=== PATIENT | male | born 1960 | race Caucasian/White ===

== ENCOUNTER → 2019-12-03 11:39 | Outpatient (BNVA) | payer OTHER, SELFPAY | PROVIDERS: Family Provider Family Medicine; Referring Provider Internal Medicine; Visit Provider Urology | DX: R97.20 Elevated prostate specific antigen [PSA] (principal) | CPT/HCPCS: 81001; 84153 ==

== ENCOUNTER 2020-08-15 17:14 | Inpatient (IN) | payer OTHER, MEDICARE, SELFPAY ==
[2020-08-15] VITALS (25 sets, daily range): BP systolic 91–166; BP diastolic 59–102; PULSE 49–84; RESP 12–19; TEMP 36.4; O2SAT 99–100; BMI 25.0
--- NOTE | 2020-08-15 17:20 | ED_ITS ---
Documented by User: Toby Betancourt DO 08/16/20 17:38 HPI - Overdose General: Chief Complaint: Overdose Stated Complaint: OVERDOSE, ALOC Time Seen by Provider: 08/15/20 17:20 History of Present Illness: HPI Narrative: 60-year-old male who presents to the emergency room via EMS after having a self-reported overdose of several bottles of gabapentin. 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 Family had called EMS were not entirely sure when he actually took the gabapentin. However pharmacy clerk found that the patient was prescribed Lyrica. Additionally he was also prescribed trazodone. We have no information if he took other medications besides the reported gabapentin. On arrival he is intubated with an eye gel being ventilated. He had been given paralytics in the field the eye gel was removed and he was immediately intubated with an ET 8 oh ET tube on the first attempt with glide scope. No complications. MD complaint: intentional overdose Onset (ago): unknown Review of Systems General: Reports: ROS unobtainable due to medical condition PFS ED PFSH: Medical History Chronic hepatitis Elevated PSA Surgical History Surgical history unknown Family History Grandmother Suicide Other Alcoholism Social History Smoking and tobacco status: former smoker Alcohol intake: former Adopted: Yes Caregiver/support person: No Lives independently: No Household members: spouse Marital status: service: Yes status: Retired Current occupational status: retired History of recent travel: No Current gender identity: Male Physical Exam HENMT: COMMON NORMALS: normocephalic and atraumatic HEAD & SCALP: normocephalic and atraumatic Neck/C-Spine: COMMON NORMALS: full ROM, no lymphadenopathy, supple and no JVD Resp: COMMON NORMALS: normal respiratory effort, No retractions, No use of accessory muscles and clear to auscultation bilaterally AUSCULTATION: clear to auscultation bilaterally Cardio: COMMON NORMALS: no JVD, regular rate, regular rhythm and No murmurs p resent (Cardio) RATE: regular rate RHYTHM: regular rhythm GI: COMMON NORMALS: Soft to palpation and No hepatosplenomegaly present AUSCULTATION: Yes normoactive bowel sounds PALPATION: Yes Soft to palpation, No Tenderness to palpation present (GI), No Guarding due to palpation present (GI) and Yes No hepatosplenomegaly present Extremity: COMMON NORMALS: normal to inspection, capillary refill normal, no clubbing, cyanosis or edema, no calf tenderness and no pedal edema Skin: COMMON NORMALS: no rashes or lesions noted GENERAL SKIN EXAM: no rashes or lesions noted Procedures Intubation Time out performed: No Laryngoscope: fiber optic video scope Assist Device Used: fiber optic device ET Tube Size: 8 Tube Secured Depth (cm): 22 Tube Secured Location: teeth Tube Placement Confirmation: visualized tube passing through cords, equal breath sounds bilaterally, no breath sounds over epigastrium and confirmation by capnometry Patient Tolerated Procedure: well Intubation Complications: none Additional Comments: Patient had been sedated with rocuronium prior to arrival here the eye gel was removed when he arrived and was replaced with an ET tube without complications. I did have some difficulty placing a nasogastric tube assisted by using laryngoscope to visualize the cuff of the ET tube was visualized it was deflated and advanced. Confirmed at the level of the clavicles by chest x-ray Course Vital Signs: Vital signs: Vital Signs Temperature 97.6 F 08/15/20 17:16 Pulse Rate 60 08/16/20 05:59 Respiratory Rate 18 08/16/20 16:00 Blood Pressure 104/59 08/15/20 21:47 Pulse Oximetry 100 08/15/20 21:47 MDM - Overdose MDM Narrative: Medical decision making narrative: Care turned over to Dr. Rowe at change of shift see his note for final diagnosis and disposition Lab Data: Labs: Lab Results 08/15/20 08/15/20 08/15/20 Range/Units 17:18 17:20 17:20 WBC (4.0-10.0) 10^3/ uL RBC (4.1-5.3) 10^6/u L Hgb (11.7-16.6) g/dL Hct (42.0-52.0) % MCV (80-94) fL MCH (28.0-34.0) pg MCHC (30.0-36.0) g/dL RDW (12.1-15.1) % Plt Count (130-400) 10^3/c mm MPV (7.4-10.4) fL Neut % (Auto) % Lymph % (Auto) % Vil[place] % (Auto) % Eos % (Auto) % Baso % (Auto) % Neut # (Auto) (1.8-7.7) 10^3/u L Lymph # (Auto) (0.8-4.8) 10^3/u L Vil[place] # (Auto) (0.2-0.9) 10^3/u L Eos # (Auto) (0.0-0.8) 10^3/u L Baso # (Auto) (0.0-0.1) 10^3/u L Nucleated RBC % (a uto) % Nucleated RBCs # /100WBC Specimen Type Arterial Sample Site Radial, right ABG pH 7.37 (7.35-7.45) ABG pCO2 49.5 H (35-45) mmHg ABG pO2 331.0 H (80.0-100.0) mmH g ABG HCO3 28.6 H (22-26) mmol/L ABG O2 Saturation > 100.0 ABG Base Excess 2.3 H (-2.0-2.0) mmol/ L Diogo Test Pos A-a O2 Gradient 41.4 H (5-10) mmHg Hematocrit 44.1 (42-52) % Hgb O2 Saturation 97.6 (95-100) % Carboxyhemoglobin 1.7 (0.4-20.1) %THgb Methemoglobin 1.0 (0.4-1.5) % Total Hemoglobin 14.4 (14-18) g/dL Sodium 145.0 H 144 (131-143) mmol/L Potassium 3.9 3.7 (3.5-5.0) mmol/L Glucose 109.0 119 H (70-115) mg/dL Ionized Calcium 1.2 (1.1-1.4) mmol/L O2 Delivery Device Vent Mechanical Rate 14.0 FiO2 100.0 % Tidal Volume 0.50 PEEP 8.0 cmH20 [employer] ID Gd Chloride 107 (98-107) mmol/L Carbon Dioxide 29 (22-29) mmol/L Anion Gap 11.7 (5-19) BUN 8 (6-20) mg/dL Creatinine 0.6 L (0.7-1.2) mg/dL GFR Calculation 137.9 H (90-130) mL/min Calculated Osmolal ity 297 H (285-295) mOsm/k g Lactic Acid 0.8 (0.5-2.2) mmol/L Calcium 9.1 (8.5-10.5) mg/dL Magnesium 2.2 (1.7-2.3) mg/dL Total Bilirubin 0.3 (0.15-1.2) mg/dL AST 13 (0-40) U/L ALT 12 (0-41) U/L Alkaline Phosphata se 70 (40-130) IU/L Creatine Kinase 85 (39-308) U/L Total Protein 7.1 (6.6-8.7) g/dL Albumin 4.1 (3.5-5.2) g/dL Globulin 3.0 (1.3-4.6) g/dL Lipase 17 (13-60) U/L Urine Color (Yellow) Urine Appearance (CLEAR) Urine pH (5-7) Ur Specific Gravit y (1.005-1.030) Urine Protein (Negative) Urine Glucose (UA) (Normal) Urine Ketones (Negative) Urine Blood (Negative) Urine Nitrate (Negative) Urine Bilirubin (Negative) Urine Urobilinogen (Negative) mg/dL Ur Leukocyte Sylvia ase (Negative) Urine RBC (0-2) /hpf Urine WBC (0-5) /hpf Ur Squamous Epith Cells (0-5) /hpf Amorphous Sediment Urine Bacteria (NONE) /hpf Salicylates < 0.3 L (3-10) mg/dL Urine Opiates Scre en (Negative) ng/mL Acetaminophen < 5.0 L (10-30) ug/mL Ur Barbiturates Sc reen (Negative) ng/mL Phenytoin (10-20) ug/mL Ur Phencyclidine S crn (Negative) ng/mL Ur Amphetamines Sc reen (Negative) ng/mL U Benzodiazepines Scrn (Negative) ng/mL [place] (0.6-1.2) mmol/L Urine Cocaine Scre en (Negative) ng/mL U Marijuana (THC) Screen (Negative) ng/mL Ethyl Alcohol < 10 (0-10) mg/dL Serum Ketones Negative (Negative) 08/15/20 08/15/20 08/15/20 Range/Units 17:20 17:26 17:26 WBC 14.4 H (4.0-10.0) 10^3/ uL RBC 5.11 (4.1-5.3) 10^6/u L Hgb 14.3 (11.7-16.6) g/dL Hct 44.5 (42.0-52.0) % MCV 87.1 (80-94) fL MCH 28.0 (28.0-34.0) pg MCHC 32.1 (30.0-36.0) g/dL RDW 13.1 (12.1-15.1) % Plt Count 227 (130-400) 10^3/c mm MPV 9.5 (7.4-10.4) fL Neut % (Auto) 87.2 % Lymph % (Auto) 7.8 % Vil[place] % (Auto) 3.3 % Eos % (Auto) 0.6 % Baso % (Auto) 0.5 % Neut # (Auto) 12.58 H (1.8-7.7) 10^3/u L Lymph # (Auto) 1.1 (0.8-4.8) 10^3/u L Vil[place] # (Auto) 0.5 (0.2-0.9) 10^3/u L Eos # (Auto) 0.1 (0.0-0.8) 10^3/u L Baso # (Auto) 0.1 (0.0-0.1) 10^3/u L Nucleated RBC % (a uto) 0 % Nucleated RBCs # 0.0 /100WBC Specimen Type Sample Site ABG pH (7.35-7.45) ABG pCO2 (35-45) mmHg ABG pO2 (80.0-100.0) mmH g ABG HCO3 (22-26) mmol/L ABG O2 Saturation ABG Base Excess (-2.0-2.0) mmol/ L Diogo Test A-a O2 Gradient (5-10) mmHg Hematocrit (42-52) % Hgb O2 Saturation (95-100) % Carboxyhemoglobin (0.4-20.1) %THgb Methemoglobin (0.4-1.5) % Total Hemoglobin (14-18) g/dL Sodium (131-143) mmol/L Potassium (3.5-5.0) mmol/L Glucose (70-115) mg/dL Ionized Calcium (1.1-1.4) mmol/L O2 Delivery Device Mechanical Rate FiO2 % Tidal Volume PEEP cmH20 [employer] ID Chloride (98-107) mmol/L Carbon Dioxide (22-29) mmol/L Anion Gap (5-19) BUN (6-20) mg/dL Creatinine (0.7-1.2) mg/dL GFR Calculation (90-130) mL/min Calculated Osmolal ity (285-295) mOsm/k g Lactic Acid (0.5-2.2) mmol/L Calcium (8.5-10.5) mg/dL Magnesium (1.7-2.3) mg/dL Total Bilirubin (0.15-1.2) mg/dL AST (0-40) U/L ALT (0-41) U/L Alkaline Phosphata se (40-130) IU/L Creatine Kinase (39-308) U/L Total Protein (6.6-8.7) g/dL Albumin (3.5-5.2) g/dL Globulin (1.3-4.6) g/dL Lipase (13-60) U/L Urine Color Yellow (Yellow) Urine Appearance Clear (CLEAR) Urine pH 6.0 (5-7) Ur Specific Gravit y 1.020 (1.005-1.030) Urine Protein Neg (Negative) Urine Glucose (UA) Norm (Normal) Urine Ketones Negative (Negative) Urine Blood Neg (Negative) Urine Nitrate Negative (Negative) Urine Bilirubin Neg (Negative) Urine Urobilinogen 1 H (Negative) mg/dL Ur Leukocyte Sylvia ase Negative (Negative) Urine RBC None (0-2) /hpf Urine WBC 0-4 H (0-5) /hpf Ur Squamous Epith Cells 5-10 H (0-5) /hpf Amorphous Sediment Not Reportable Urine Bacteria Trace (NONE) /hpf Salicylates (3-10) mg/dL Urine Opiates Scre en Negative (Negative) ng/mL Acetaminophen (10-30) ug/mL Ur Barbiturates Sc reen Negative (Negative) ng/mL Phenytoin (10-20) ug/mL Ur Phencyclidine S crn Negative (Negative) ng/mL Ur Amphetamines Sc reen Negative (Negative) ng/mL U Benzodiazepines Scrn Negative (Negative) ng/mL [place] (0.6-1.2) mmol/L Urine Cocaine Scre en Negative (Negative) ng/mL U Marijuana (THC) Screen Positive H (Negative) ng/mL Ethyl Alcohol (0-10) mg/dL Serum Ketones (Negative) 08/15/20 Range/Units 18:30 WBC (4.0-10.0) 10^3/ uL RBC (4.1-5.3) 10^6/u L Hgb (11.7-16.6) g/dL Hct (42.0-52.0) % MCV (80-94) fL MCH (28.0-34.0) pg MCHC (30.0-36.0) g/dL RDW (12.1-15.1) % Plt Count (130-400) 10^3/c mm MPV (7.4-10.4) fL Neut % (Auto) % Lymph % (Auto) % [place] % (Auto) % Eos % (Auto) % Baso % (Auto) % Neut # (Auto) (1.8-7.7) 10^3/u L Lymph # (Auto) (0.8-4.8) 10^3/u L [place] # (Auto) (0.2-0.9) 10^3/u L Eos # (Auto) (0.0-0.8) 10^3/u L Baso # (Auto) (0.0-0.1) 10^3/u L Nucleated RBC % (a uto) % Nucleated RBCs # /100WBC Specimen Type Sample Site ABG pH (7.35-7.45) ABG pCO2 (35-45) mmHg ABG pO2 (80.0-100.0) mmH g ABG HCO3 (22-26) mmol/L ABG O2 Saturation ABG Base Excess (-2.0-2.0) mmol/ L Diogo Test A-a O2 Gradient (5-10) mmHg Hematocrit (42-52) % Hgb O2 Saturation (95-100) % Carboxyhemoglobin (0.4-20.1) %THgb Methemoglobin (0.4-1.5) % Total Hemoglobin (14-18) g/dL Sodium (131-143) mmol/L Potassium (3.5-5.0) mmol/L Glucose (70-115) mg/dL Ionized Calcium (1.1-1.4) mmol/L O2 Delivery Device Mechanical Rate FiO2 % Tidal Volume PEEP cmH20 [employer] ID Chloride (98-107) mmol/L Carbon Dioxide (22-29) mmol/L Anion Gap (5-19) BUN (6-20) mg/dL Creatinine (0.7-1.2) mg/dL GFR Calculation (90-130) mL/min Calculated Osmolal ity (285-295) mOsm/k g Lactic Acid (0.5-2.2) mmol/L Calcium (8.5-10.5) mg/dL Magnesium (1.7-2.3) mg/dL Total Bilirubin (0.15-1.2) mg/dL AST (0-40) U/L ALT (0-41) U/L Alkaline Phosphata se (40-130) IU/L Creatine Kinase (39-308) U/L Total Protein (6.6-8.7) g/dL Albumin (3.5-5.2) g/dL Globulin (1.3-4.6) g/dL Lipase (13-60) U/L Urine Color (Yellow) Urine Appearance (CLEAR) Urine pH (5-7) Ur Specific Gravit y (1.005-1.030) Urine Protein (Negative) Urine Glucose (UA) (Normal) Urine Ketones (Negative) Urine Blood (Negative) Urine Nitrate (Negative) Urine Bilirubin (Negative) Urine Urobilinogen (Negative) mg/dL Ur Leukocyte Sylvia ase (Negative) Urine RBC (0-2) /hpf Urine WBC (0-5) /hpf Ur Squamous Epith Cells (0-5) /hpf Amorphous Sediment Urine Bacteria (NONE) /hpf Salicylates (3-10) mg/dL Urine Opiates Scre en (Negative) ng/mL Acetaminophen (10-30) ug/mL Ur Barbiturates Sc reen (Negative) ng/mL Phenytoin 0.8 L (10-20) ug/mL Ur Phencyclidine S crn (Negative) ng/mL Ur Amphetamines Sc reen (Negative) ng/mL U Benzodiazepines Scrn (Negative) ng/mL [place] 0.1 L (0.6-1.2) mmol/L Urine Cocaine Scre en (Negative) ng/mL U Marijuana (THC) Screen (Negative) ng/mL Ethyl Alcohol (0-10) mg/dL Serum Ketones (Negative) Critical Care Time Critical Care Time: Critical Care Time: Yes Total Critical Care Time: 30 Attestation: This case had a high probability of a clinically significant, sudden, or life threatening deterioration of this patient's condition which required my full and direct attention, intervention and personal management. Discharge Plan Discharge Patient Disposition: Admitted As Inpatient Admit Provider: Molly Khalil Clinical Impression: Drug overdose Condition: Stable Coding Level of Care Code ED Stakes Player for Chg Fwd Exam Detailed Documented by User: Balbina Rowe MD 08/15/20 19:20 HPI - Overdose General: Chief Complaint: Overdose Stated Complaint: OVERDOSE, ALOC Time Seen by Provider: 08/15/20 17:20 [facility] ED PFSH: Medical History Chronic hepatitis Elevated PSA Surgical History Surgical history unknown Family History Grandmother Suicide Other Alcoholism Social History Smoking and tobacco status: former smoker Alcohol intake: former Adopted: Yes Caregiver/support person: No Lives independently: No Household members: spouse Marital status: service: Yes status: Retired Current occupational status: retired History of recent travel: No Current gender identity: Male Course Vital Signs: Vital signs: Vital Signs Temperature 97.6 F 08/15/20 17:16 Pulse Rate 60 08/16/20 05:59 Respiratory Rate 18 08/16/20 16:00 Blood Pressure 104/59 08/15/20 21:47 Pulse Oximetry 100 08/15/20 21:47 MDM - Overdose MDM Narrative: Medical decision making narrative: Took patient over from Dr. Gonzalez. Patient's been stable here and abated. Patient's lab work vital signs of been normal. I spoke to the hospitalist and will admit to the ICU. Lab Data: Labs: Lab Results 08/15/20 08/15/20 08/15/20 Range/Units 17:18 17:20 17:20 WBC (4.0-10.0) 10^3/ uL RBC (4.1-5.3) 10^6/u L Hgb (11.7-16.6) g/dL Hct (42.0-52.0) % MCV (80-94) fL MCH (28.0-34.0) pg MCHC (30.0-36.0) g/dL RDW (12.1-15.1) % Plt Count (130-400) 10^3/c mm MPV (7.4-10.4) fL Neut % (Auto) % Lymph % (Auto) % [place] % (Auto) % Eos % (Auto) % Baso % (Auto) % Neut # (Auto) (1.8-7.7) 10^3/u L Lymph # (Auto) (0.8-4.8) 10^3/u L [place] # (Auto) (0.2-0.9) 10^3/u L Eos # (Auto) (0.0-0.8) 10^3/u L Baso # (Auto) (0.0-0.1) 10^3/u L Nucleated RBC % (a uto) % Nucleated RBCs # /100WBC Specimen Type Arterial Sample Site Radial, right ABG pH 7.37 (7.35-7.45) ABG pCO2 49.5 H (35-45) mmHg ABG pO2 331.0 H (80.0-100.0) mmH g ABG HCO3 28.6 H (22-26) mmol/L ABG O2 Saturation > 100.0 ABG Base Excess 2.3 H (-2.0-2.0) mmol/ L Diogo Test Pos A-a O2 Gradient 41.4 H (5-10) mmHg Hematocrit 44.1 (42-52) % Hgb O2 Saturation 97.6 (95-100) % Carboxyhemoglobin 1.7 (0.4-20.1) %THgb Methemoglobin 1.0 (0.4-1.5) % Total Hemoglobin 14.4 (14-18) g/dL Sodium 145.0 H 144 (131-143) mmol/L Potassium 3.9 3.7 (3.5-5.0) mmol/L Glucose 109.0 119 H (70-115) mg/dL Ionized Calcium 1.2 (1.1-1.4) mmol/L O2 Delivery Device Vent Mechanical Rate 14.0 FiO2 100.0 % Tidal Volume 0.50 PEEP 8.0 cmH20 [employer] ID Gd Chloride 107 (98-107) mmol/L Carbon Dioxide 29 (22-29) mmol/L Anion Gap 11.7 (5-19) BUN 8 (6-20) mg/dL Creatinine 0.6 L (0.7-1.2) mg/dL GFR Calculation 137.9 H (90-130) mL/min Calculated Osmolal ity 297 H (285-295) mOsm/k g Lactic Acid 0.8 (0.5-2.2) mmol/L Calcium 9.1 (8.5-10.5) mg/dL Magnesium 2.2 (1.7-2.3) mg/dL Total Bilirubin 0.3 (0.15-1.2) mg/dL AST 13 (0-40) U/L ALT 12 (0-41) U/L Alkaline Phosphata se 70 (40-130) IU/L Creatine Kinase 85 (39-308) U/L Total Protein 7.1 (6.6-8.7) g/dL Albumin 4.1 (3.5-5.2) g/dL Globulin 3.0 (1.3-4.6) g/dL Lipase 17 (13-60) U/L Urine Color (Yellow) Urine Appearance (CLEAR) Urine pH (5-7) Ur Specific Gravit y (1.005-1.030) Urine Protein (Negative) Urine Glucose (UA) (Normal) Urine Ketones (Negative) Urine Blood (Negative) Urine Nitrate (Negative) Urine Bilirubin (Negative) Urine Urobilinogen (Negative) mg/dL Ur Leukocyte Sylvia ase (Negative) Urine RBC (0-2) /hpf Urine WBC (0-5) /hpf Ur Squamous Epith Cells (0-5) /hpf Amorphous Sediment Urine Bacteria (NONE) /hpf Salicylates < 0.3 L (3-10) mg/dL Urine Opiates Scre en (Negative) ng/mL Acetaminophen < 5.0 L (10-30) ug/mL Ur Barbiturates Sc reen (Negative) ng/mL Phenytoin (10-20) ug/mL Ur Phencyclidine S crn (Negative) ng/mL Ur Amphetamines Sc reen (Negative) ng/mL U Benzodiazepines Scrn (Negative) ng/mL [place] (0.6-1.2) mmol/L Urine Cocaine Scre en (Negative) ng/mL U Marijuana (THC) Screen (Negative) ng/mL Ethyl Alcohol < 10 (0-10) mg/dL Serum Ketones Negative (Negative) 08/15/20 08/15/20 08/15/20 Range/Units 17:20 17:26 17:26 WBC 14.4 H (4.0-10.0) 10^3/ uL RBC 5.11 (4.1-5.3) 10^6/u L Hgb 14.3 (11.7-16.6) g/dL Hct 44.5 (42.0-52.0) % MCV 87.1 (80-94) fL MCH 28.0 (28.0-34.0) pg MCHC 32.1 (30.0-36.0) g/dL RDW 13.1 (12.1-15.1) % Plt Count 227 (130-400) 10^3/c mm MPV 9.5 (7.4-10.4) fL Neut % (Auto) 87.2 % Lymph % (Auto) 7.8 % [place] % (Auto) 3.3 % Eos % (Auto) 0.6 % Baso % (Auto) 0.5 % Neut # (Auto) 12.58 H (1.8-7.7) 10^3/u L Lymph # (Auto) 1.1 (0.8-4.8) 10^3/u L [place] # (Auto) 0.5 (0.2-0.9) 10^3/u L Eos # (Auto) 0.1 (0.0-0.8) 10^3/u L Baso # (Auto) 0.1 (0.0-0.1) 10^3/u L Nucleated RBC % (a uto) 0 % Nucleated RBCs # 0.0 /100WBC Specimen Type Sample Site ABG pH (7.35-7.45) ABG pCO2 (35-45) mmHg ABG pO2 (80.0-100.0) mmH g ABG HCO3 (22-26) mmol/L ABG O2 Saturation ABG Base Excess (-2.0-2.0) mmol/ L Diogo Test A-a O2 Gradient (5-10) mmHg Hematocrit (42-52) % Hgb O2 Saturation (95-100) % Carboxyhemoglobin (0.4-20.1) %THgb Methemoglobin (0.4-1.5) % Total Hemoglobin (14-18) g/dL Sodium (131-143) mmol/L Potassium (3.5-5.0) mmol/L Glucose (70-115) mg/dL Ionized Calcium (1.1-1.4) mmol/L O2 Delivery Device Mechanical Rate FiO2 % Tidal Volume PEEP cmH20 [employer] ID Chloride (98-107) mmol/L Carbon Dioxide (22-29) mmol/L Anion Gap (5-19) BUN (6-20) mg/dL Creatinine (0.7-1.2) mg/dL GFR Calculation (90-130) mL/min Calculated Osmolal ity (285-295) mOsm/k g Lactic Acid (0.5-2.2) mmol/L Calcium (8.5-10.5) mg/dL Magnesium (1.7-2.3) mg/dL Total Bilirubin (0.15-1.2) mg/dL AST (0-40) U/L ALT (0-41) U/L Alkaline Phosphata se (40-130) IU/L Creatine Kinase (39-308) U/L Total Protein (6.6-8.7) g/dL Albumin (3.5-5.2) g/dL Globulin (1.3-4.6) g/dL Lipase (13-60) U/L Urine Color Yellow (Yellow) Urine Appearance Clear (CLEAR) Urine pH 6.0 (5-7) Ur Specific Gravit y 1.020 (1.005-1.030) Urine Protein Neg (Negative) Urine Glucose (UA) Norm (Normal) Urine Ketones Negative (Negative) Urine Blood Neg (Negative) Urine Nitrate Negative (Negative) Urine Bilirubin Neg (Negative) Urine Urobilinogen 1 H (Negative) mg/dL Ur Leukocyte Sylvia ase Negative (Negative) Urine RBC None (0-2) /hpf Urine WBC 0-4 H (0-5) /hpf Ur Squamous Epith Cells 5-10 H (0-5) /hpf Amorphous Sediment Not Reportable Urine Bacteria Trace (NONE) /hpf Salicylates (3-10) mg/dL Urine Opiates Scre en Negative (Negative) ng/mL Acetaminophen (10-30) ug/mL Ur Barbiturates Sc reen Negative (Negative) ng/mL Phenytoin (10-20) ug/mL Ur Phencyclidine S crn Negative (Negative) ng/mL Ur Amphetamines Sc reen Negative (Negative) ng/mL U Benzodiazepines Scrn Negative (Negative) ng/mL [place] (0.6-1.2) mmol/L Urine Cocaine Scre en Negative (Negative) ng/mL U Marijuana (THC) Screen Positive H (Negative) ng/mL Ethyl Alcohol (0-10) mg/dL Serum Ketones (Negative) 08/15/20 Range/Units 18:30 WBC (4.0-10.0) 10^3/ uL RBC (4.1-5.3) 10^6/u L Hgb (11.7-16.6) g/dL Hct (42.0-52.0) % MCV (80-94) fL MCH (28.0-34.0) pg MCHC (30.0-36.0) g/dL RDW (12.1-15.1) % Plt Count (130-400) 10^3/c mm MPV (7.4-10.4) fL Neut % (Auto) % Lymph % (Auto) % [place] % (Auto) % Eos % (Auto) % Baso % (Auto) % Neut # (Auto) (1.8-7.7) 10^3/u L Lymph # (Auto) (0.8-4.8) 10^3/u L [place] # (Auto) (0.2-0.9) 10^3/u L Eos # (Auto) (0.0-0.8) 10^3/u L Baso # (Auto) (0.0-0.1) 10^3/u L Nucleated RBC % (a uto) % Nucleated RBCs # /100WBC Specimen Type Sample Site ABG pH (7.35-7.45) ABG pCO2 (35-45) mmHg ABG pO2 (80.0-100.0) mmH g ABG HCO3 (22-26) mmol/L ABG O2 Saturation ABG Base Excess (-2.0-2.0) mmol/ L Diogo Test A-a O2 Gradient (5-10) mmHg Hematocrit (42-52) % Hgb O2 Saturation (95-100) % Carboxyhemoglobin (0.4-20.1) %THgb Methemoglobin (0.4-1.5) % Total Hemoglobin (14-18) g/dL Sodium (131-143) mmol/L Potassium (3.5-5.0) mmol/L Glucose (70-115) mg/dL Ionized Calcium (1.1-1.4) mmol/L O2 Delivery Device Mechanical Rate FiO2 % Tidal Volume PEEP cmH20 [employer] ID Chloride (98-107) mmol/L Carbon Dioxide (22-29) mmol/L Anion Gap (5-19) BUN (6-20) mg/dL Creatinine (0.7-1.2) mg/dL GFR Calculation (90-130) mL/min Calculated Osmolal ity (285-295) mOsm/k g Lactic Acid (0.5-2.2) mmol/L Calcium (8.5-10.5) mg/dL Magnesium (1.7-2.3) mg/dL Total Bilirubin (0.15-1.2) mg/dL AST (0-40) U/L ALT (0-41) U/L Alkaline Phosphata se (40-130) IU/L Creatine Kinase (39-308) U/L Total Protein (6.6-8.7) g/dL Albumin (3.5-5.2) g/dL Globulin (1.3-4.6) g/dL Lipase (13-60) U/L Urine Color (Yellow) Urine Appearance (CLEAR) Urine pH (5-7) Ur Specific Gravit y (1.005-1.030) Urine Protein (Negative) Urine Glucose (UA) (Normal) Urine Ketones (Negative) Urine Blood (Negative) Urine Nitrate (Negative) Urine Bilirubin (Negative) Urine Urobilinogen (Negative) mg/dL Ur Leukocyte Sylvia ase (Negative) Urine RBC (0-2) /hpf Urine WBC (0-5) /hpf Ur Squamous Epith Cells (0-5) /hpf Amorphous Sediment Urine Bacteria (NONE) /hpf Salicylates (3-10) mg/dL Urine Opiates Scre en (Negative) ng/mL Acetaminophen (10-30) ug/mL Ur Barbiturates Sc reen (Negative) ng/mL Phenytoin 0.8 L (10-20) ug/mL Ur Phencyclidine S crn (Negative) ng/mL Ur Amphetamines Sc reen (Negative) ng/mL U Benzodiazepines Scrn (Negative) ng/mL [place] 0.1 L (0.6-1.2) mmol/L Urine Cocaine Scre en (Negative) ng/mL U Marijuana (THC) Screen (Negative) ng/mL Ethyl Alcohol (0-10) mg/dL Serum Ketones (Negative) Critical Care Time Critical Care Time: Critical Care Time: Yes Total Critical Care Time: 36 Attestation: This case had a high probability of a clinically significant, sudden, or life threatening deterioration of this patient's condition which required my full and direct attention, intervention and personal management. Discharge Plan Discharge Patient Disposition: Admitted As Inpatient Admit Provider: Molly Khalil Clinical Impression: Drug overdose Condition: Stable Coding Level of Care Code ED Stakes Player for Surjit Fwd Exam Detailed
--- NOTE | 2020-08-15 17:26 | CTR_ITS ---
PROCEDURE INFORMATION: Exam: CT Head Without Contrast Exam date and time: 08/15/2020 5:36 PM Age: 60 years old Clinical indication: Altered mental status/memory loss; Patient HX: PT intubated; Additional info: [place] TECHNIQUE: Imaging protocol: Computed tomography of the head without contrast. Radiation optimization: All CT scans at this facility use at least one of these dose optimization techniques: automated exposure control; mA and/or kV adjustment per patient size (includes targeted exams where dose is matched to clinical indication); or iterative reconstruction. COMPARISON: No relevant prior studies available. RADIATION DOSE METRICS: Total DLP (mGy-cm): 1036.6 FINDINGS: Brain: Normal. No hemorrhage. Unremarkable white matter. No mass effect. Cerebral ventricles: No ventriculomegaly. Bones/joints: Unremarkable. No acute fracture. Paranasal sinuses: Visualized sinuses are unremarkable. No fluid levels. Mastoid air cells: Visualized mastoid air cells are well aerated. Soft tissues: Unremarkable. CT/CT head wo con* [id number] IMPRESSION: No acute intracranial abnormality. Radiation Dose CTDIVOL = (mGy): DLP = 1036.6 (mGy-cm)
--- NOTE | 2020-08-15 17:26 | XR_ITS ---
WS: [id number] Exam: XR chest 1V portable [id number] Date/Time of Exam: 08/15/2020 5:26 PM Reason For Exam: dyspnea/cough No priors. The lungs are clear and fully expanded. Normal cardiomediastinal structures for technique. An ET tube is in place ending about 6 cm above the vishal in good position. An enteric tube enters the stomach but the tip is out of the [id number]. No pleural effusion. Bony structures are intact. Mediastinal contours appear normal. XR/XR chest 1V portable [id number] IMPRESSION: 1. No acute cardiopulmonary finding. 2. ET tube in good position.
[2020-08-15] MEDS: propofol 1,000 MG/100 ML INJ 2 MG IV (17:30)
[2020-08-15 17:33] LABS: ABG PCO2 49.5 mmHg (35-45); ABG PH Result 7.37 (7.35-7.45); Arterial Blood Gas Hematocrit 44.1 % (42-52); Base Excess ABG 2.3 mmol/L (-2.0-2.0); Blood Gas Allen Test Pos; Blood Gas Sample Type Arterial; Carboxyhemoglobin 1.7 %THgb (0.4-20.1); HCO3 ABG 28.6 mmol/L (22-26); HGB O2 Sat 97.6 % (95-100); Ionized Calcium Level - ABG 1.2 mmol/L (1.1-1.4); Oxygen Saturation ABG > 100.0; Potassium Level - ABG 3.9 mmol/L (3.5-5.0); Total Hemoglobin 14.4 g/dL (14-18)
[2020-08-15 17:35] LABS: Alveolar-Arterial Oxygen Gradi 41.4 mmHg (5-10); Blood Gas Operator Identificat GD; Blood Gas Sample Site Radial, right; Oxygen Device VENT
[2020-08-15 17:38] LABS: Basophils # 0.1 10^3/uL (0.0-0.1); Basophils % 0.5 %; Eosinophils # 0.1 10^3/uL (0.0-0.8); Eosinophils % 0.6 %; Hematocrit 44.5 % (42.0-52.0); Hemoglobin 14.3 g/dL (11.7-16.6); Lymphocytes # 1.1 10^3/uL (0.8-4.8); Lymphocytes % 7.8 %; Mean Corpuscular HGB Conc 32.1 g/dL (30.0-36.0); Mean Corpuscular Volume 87.1 fL (80-94); Mean Platelet Volume 9.5 fL (7.4-10.4); Monocytes # 0.5 10^3/uL (0.2-0.9); Monocytes % 3.3 %; Neutrophils # 12.58 10^3/uL (1.8-7.7); Neutrophils % 87.2 %; Nucleated Red Blood Cells % 0 %; Platelet Count 227 10^3/cmm (130-400); Red Blood Count 5.11 10^6/uL (4.1-5.3); Red Cell Distribution Width 13.1 % (12.1-15.1); White Blood Count 14.4 10^3/uL (4.0-10.0)
[2020-08-15 17:52] LABS: Ketone (Acetest) Serum Negative (Negative)
[2020-08-15 18:05] LABS: Lactic Sepsis W/Reflex 0.8 mmol/L (0.5-2.2)
[2020-08-15 18:06] LABS: Alanine Aminotransferase 12 U/L (0-41); Albumin Level 4.1 g/dL (3.5-5.2); Alkaline Phosphatase 70 IU/L (40-130); Anion Gap 11.7 (5-19); Aspartate Amino Transferase 13 U/L (0-40); Blood Urea Nitrogen 8 mg/dL (6-20); Calcium 9.1 mg/dL (8.5-10.5); Carbon Dioxide 29 mmol/L (22-29); Chloride 107 mmol/L (98-107); Creatine Phosphokinase 85 U/L (39-308); Glomerular Filtration Rate 137.9 mL/min (90-130); Glucose 119 mg/dL (65-115); Lipase 17 U/L (13-60); Magnesium 2.2 mg/dL (1.7-2.3); Osmolality Calculated 297 mOsm/kg (285-295); Potassium 3.7 mmol/L (3.5-5.1); Sodium 144 mmol/L (136-145); Total Bilirubin 0.3 mg/dL (0.15-1.2); Total Protein 7.1 g/dL (6.6-8.7)
[2020-08-15 18:15] LABS: Acetaminophen < 5.0 ug/mL (10-30); Alcohol Level < 10 mg/dL (0-10); Salicylate < 0.3 mg/dL (3-10)
--- NOTE | 2020-08-15 18:44 | PC.NURSE ---
PT ARRIVES WITH ORAL AIRWAY INTACT, BEING BAGGED BY EMS. DR ZHAO AT BEDSIDE, PT INTUBATED. BARNEY CATHETER PLACED, ORALGASTRIC TUBE INSERTED. SEDATION VIA DIPROVAN ORDERED.
[2020-08-15 19:17] LABS: Add Urine Microscopic? YES; Bilirubin Urine Neg (Negative); Blood Urine Neg (Negative); Glucose Urine UA Norm (Normal); Ketones Urine Negative (Negative); Leukocyte Esterase Urine Negative (Negative); Nitrate Urine Negative (Negative); Protein Urine Neg (Negative); Urine Appearance Clear (CLEAR); Urine Color Yellow (Yellow); Urobilinogen Urine 1 mg/dL (Negative); WBC Urine 0-4 /hpf (0-5)
[2020-08-15 19:18] LABS: Add Urine Culture? No; Bacteria Urine TRACE /hpf
[2020-08-15 19:19] LABS: Amphetamines Screen Urine Negative (Negative); Barbiturates Screen Urine Negative (Negative); Benzodiazepines Screen Urine Negative (Negative); Cocaine Screen Urine Negative (Negative); Opiate Screen Urine Negative (Negative); PCP Screen Urine Negative (Negative); THC Screen Urine Positive (Negative)
[2020-08-15] MEDS: sodium chloride 0.9% 1,000 ML 999 ML IV (19:31)
--- NOTE | 2020-08-15 19:31 | P.HP_ITS ---
Providers/Chief Complaint Chief Complaint: OVERDOSE, ALOC History of Present Illness Rock Taveras is a 60 year old male who does not have significant past medical history other than BPH presents today after altered mental status. is at the bedside who is endorsing that Mr. Taveras is a healthy man never had any OK CHF or cancer diagnosis but he has some prostate issues. He is not suicidal he never was depressed. He does take pregabalin for his pain, she thinks he probably took more than prescribed dosages of pregabalin because of his pain. Otherwise she did not notice any suicidal behavior or depressive mood at home. Today he was playing his Xbox when he suddenly fell from his sofa on the floor. When EMS arrived he was somnolent supraglottic airway was placed and he was intubated in the ER at [facility]. After intubation ABGs revealed hyper toxemia normal pH. No significant CBC or BMP abnormality. Chest x-ray does not show any pneumonia, head CT is unremarkable for acute pathology such as hemorrhage or edema. He has mild leukocytosis however he does not meet sepsis criteria. His heart rate is showing bradycardia heart rate ranging between 50s to 55. Systolic blood pressure 109/63mmhg he is on propofol right now. I would request another EKG and TSH. EKG showing sinus bradycardia no QTC prolongation Review of Systems General: Reports: ROS unobtainable due to endotracheal tube Medications/Allergies Home Medications Medication Instructions Recorded Confirmed Last Taken Type pregabalin 225 mg capsule 225 mg PO DAILY 12/03/19 12/03/19 Unknown History trazodone 50 mg tablet 25 mg PO DAILY 12/03/19 12/03/19 Unknown History Allergies Allergy/AdvReac Type Severity Reaction Status Date / Time blueberry Allergy Unknown Verified 11/30/19 15:25 PFSH Acute PFSH: Medical History Chronic hepatitis Elevated PSA Surgical History Surgical history unknown Family History Grandmother Suicide Other Alcoholism Social History Smoking and tobacco status: former smoker Alcohol intake: former Adopted: Yes Caregiver/support person: No Lives independently: No Household members: spouse Marital status: service: Yes status: Retired Current occupational status: retired History of recent travel: No Current gender identity: Male Vitals/I&O/Wt Last Vital Signs Temp 97.6 F 08/15/20 17:16 Pulse 61 08/15/20 18:25 Resp 18 08/15/20 18:25 BP 153/97 08/15/20 18:25 Pulse Ox 100 08/15/20 18:25 Weight last 48 hrs Weight 90.718 kg Physical Exam Narrative: EXAM NARRATIVE: Middle-age male currently intubated and sedated PRVC ventilator PEEP 5, FiO2 40 percent, tidal volume 500 respiratory rate 14 Sedated with propofol S1, S2 sinus rhythm bradycardia No signs of heart failure Blood clots around his teeth endotracheal tube Assisted bilateral breath sounds no adventitious rhonchi or crackles Soft abdomen, nondistended Pupils are sluggish and constricted on propofol Lower extremity some lacerations of knee and anterior tibia noted otherwise no edema gangrene ulcer Neuro exam limited No sign of cellulitis of skin His back was not examined Sihpman catheter draining clear yellow urine Urinary Catheter Management^: Shipman: Cath Placed During This Visit: yes Urinary Catheter Date of Insertion: 08/15/20 Urinary Catheter Time of Insertion: 18:55 Data : 08/15/20 17:20 08/15/20 17:20 Micro: Microbiology 08/15/20 17:45 Gram Stain - Final Sputum - Endotracheal Tube Aspirate A&P Assessment and plan (1) Drug overdose: Status: Acute (2) Respiratory failure: Status: Acute (3) Altered mental status: Status: Acute Additional A&P Information Altered mental status Likely accidental overdose on pregabalin As per the there was no suicidal behavior or signs of depression Requested another EKG however telemetry is showing sinus bradycardia heart rate 50-55, blood pressure 109/63 mmHg Intubated for airway protection No signs of sepsis Try weaning trial in the morning Pregabalin overdose can cause altered mental status and respiratory depression, monitor closely in the ICU, try extubation in the morning and neuropsychiatric e valuation as well Bradycardia Would request TSH, magnesium level, serial EKGs and troponin Blood pressure stable, sinus bradycardia no QTC prolonged However it is not known whether bradycardia played a role in altered mental status at this point BPH: Currently Shipman catheter draining clear yellow urine Nodular prostate, he was offered prostate biopsy which has not been done yet, follows up with Dr. Whiting Full code N.p.o. DVT prophylaxis Attestations Medical Necessity Statement*: Anticipating stay in the hospital cross more than 2 midnights currently intubated and sedated for altered mental status and respiratory depression accidental drug overdose ,telemetry showing bradycardia Time Spent in Patient Care: (>than 50% of time spent in counselling and/or direct pt care on unit) . 50mins Coding Level of Care Code Acute Carpet Loom Fixer for Surjit Fwd Diagnoses Drug overdose T50.901A Respiratory failure J96.90 Altered mental status R41.82
[2020-08-15 19:38] LABS: Lithium 0.1 mmol/L (0.6-1.2); Phenytoin Dilantin 0.8 ug/mL (10-20)
--- NOTE | 2020-08-15 23:12 | PC.NURSE ---
When this nurse took over care for this patient it was noticed that Yasemin Currie RN did not chart the propofol drip on the patient. This nurse did not titrate the medication for the patient, this nurse saw that the propofol was running at 15mls/hr when she took over patient care.
--- NOTE | 2020-08-15 23:18 | ECG_ITS ---
[facility] Test Date: 2020-08-15 Pat Name: Rock Taveras Department: Room: ICU10 Gender: Male Final Expense Agent: : 1960 Requested By: Molly Khalil Order Number: [id number] Alvaro MD: Zee Birmingham M.D. Measurements Intervals [place] Rate: 51 P: 57 VT: 141 QRS: 69 QRSD: 78 T: 63 QT: 447 QTc: 414 Interpretive Statements SINUS BRADYCARDIA No previous ECG available for comparison Electronically Signed On 08-16-2020 16:53:32 RESEARCH PHYSICIAN by Zee Birmingham M.D. [id number]
--- NOTE | 2020-08-15 23:21 | PC.NURSE ---
Arrived from ED via stretcher, Propofol running at 15 mcg/kg/min this nurse was notified that bottle was not scanned, ET tube 25 at lip, sinus glenis, does not follow commands, pupils fixed
--- NOTE | 2020-08-15 23:55 | PC.NURSE ---
Dr. Khalil notifed of Propofol running, this nurse was advised to switch to ordered Fentanyl
[2020-08-16] VITALS (10 sets, daily range): PULSE 60; RESP 12–18
[2020-08-16] MEDS: D5-NS 0.45% + KCL 20 mEq 20 MEQ/1,000 ML BAG 75 MEQ IV ×2 (00:12→19:00)
[2020-08-16] MEDS: enoxaparin 40 mg/0.4 mL Syringe SUBCUT ×2 (00:13→23:38)
[2020-08-16 00:29] LABS: Troponin(5th) Baseline 10 ng/L (0-15)
[2020-08-16 00:38] LABS: Magnesium 2.1 mg/dL (1.7-2.3); Thyroid Stimulating Hormone 0.63 uIU/mL (0.27-4.20)
--- NOTE | 2020-08-16 03:02 | ECG_ITS ---
[facility] Test Date: 2020-08-16 Pat Name: Rock Taveras Department: Room: ICU10 Gender: Male Bunghole Borer: : 1960 Requested By: Molly Khalil Order Number: [id number] Alvaro MD: Zee Birmingham M.D. Measurements Intervals [place] Rate: 63 P: 36 ND: 138 QRS: 65 QRSD: 85 T: 50 QT: 374 QTc: 384 Interpretive Statements SINUS RHYTHM Compared to ECG 08/15/2020 20:58:52 Sinus bradycardia no longer present Electronically Signed On 08-16-2020 16:55:05 BORING MACHINE OPERATOR DOUBLE END by Zee Birmingham M.D. [id number]
[2020-08-16 03:06] LABS: Troponin 5 2HR 9.92 ng/L (0-15)
[2020-08-16 03:09] LABS: Troponin 5 2HR Delta -0.08 ABS# (0-10)
[2020-08-16 04:55] LABS: ABG PCO2 46.5 mmHg (35-45); Arterial Blood Gas Hematocrit 41.3 % (42-52); Base Excess ABG 3.5 mmol/L (-2.0-2.0); Blood Gas Allen Test Pos; Blood Gas Operator Identificat Anonymous; Blood Gas Sample Site Brachial, right; Blood Gas Sample Type Arterial; PO2 ABG 91.3 mmHg (80.0-100.0)
[2020-08-16 04:56] LABS: Oxygen Device VENT
--- NOTE | 2020-08-16 06:31 | PC.NURSE ---
patient woke up, restless, agitated, attempting to get hands towards ET tube, Versed drip started per protocol
[2020-08-16 06:51] LABS: Basophils # 0.1 10^3/uL (0.0-0.1); Basophils % 0.5 %; Eosinophils # 0.2 10^3/uL (0.0-0.8); Eosinophils % 1.2 %; Lymphocytes # 2.6 10^3/uL (0.8-4.8); Lymphocytes % 17.9 %; Mean Corpuscular HGB Conc 30.2 g/dL (30.0-36.0); Mean Corpuscular Hemoglobin 27.9 pg (28.0-34.0); Mean Corpuscular Volume 92.3 fL (80-94); Mean Platelet Volume 9.8 fL (7.4-10.4); Monocytes # 1.1 10^3/uL (0.2-0.9); Monocytes % 7.5 %; Neutrophils % 72.6 %; Nucleated Red Blood Cells % 0 %; Platelet Count 197 10^3/cmm (130-400); Red Blood Count 4.66 10^6/uL (4.1-5.3); Red Cell Distribution Width 13.5 % (12.1-15.1); White Blood Count 14.5 10^3/uL (4.0-10.0)
[2020-08-16 07:03] LABS: Anion Gap 12.1 (5-19); Blood Urea Nitrogen 6 mg/dL (6-20); Calcium 8.5 mg/dL (8.5-10.5); Carbon Dioxide 27 mmol/L (22-29); Chloride 105 mmol/L (98-107); Glomerular Filtration Rate 115.4 mL/min (90-130); Glucose 108 mg/dL (65-115); Osmolality Calculated 288 mOsm/kg (285-295); Phosphorus 2.9 mg/dL (2.5-4.5); Potassium 4.1 mmol/L (3.5-5.1); Sodium 140 mmol/L (136-145)
--- NOTE | 2020-08-16 07:16 | PC.NURSE ---
eyes closed supine 45 degrees, tolerating Vent at this time, call light within reach
[2020-08-16 14:37] LABS: D Dimer 1.44 ug/mIFEU (0-0.59)
--- NOTE | 2020-08-16 16:00 | PM.PN ---
Subjective Subjective: Interval history: overnight labs and H&P reveiwed, remains intubated, sedated Medications: Reviewed: Yes Vitals/I&O/Wt Last Vital Signs Temp 97.6 F 08/15/20 17:16 Pulse 60 08/16/20 05:59 Resp 18 08/16/20 16:00 BP 104/59 08/15/20 21:47 Pulse Ox 100 08/15/20 21:47 08/16/20 08/16/20 08/17/20 14:59 22:59 06:59 Intake Total 1033.783 / 1033.783 Output Total 500 / 500 Balance 1033.783 / 1033.783 -500 / 533.783 Weight last 48 hrs Weight 90.718 kg Physical Exam Narrative: EXAM NARRATIVE: GEN: intubtaed,sedated CVS: S1S2 N RS: CTA B/L Abd: Soft, nt/nd , bs+ ZIPPER LINING FOLDER: unable to assess due to sedation Urinary Catheter Management^: Shipman: Cath Placed During This Visit: yes Urinary Catheter Date of Insertion: 08/15/20 Urinary Catheter Time of Insertion: 18:55 Data : 08/16/20 06:13 08/16/20 06:13 Micro: Microbiology 08/15/20 17:45 Gram Stain - Final Sputum - Endotracheal Tube Aspirate A&P Assessment and plan (1) Drug overdose: Status: Acute (2) Respiratory failure: Status: Acute (3) Altered mental status: Status: Acute Additional A&P Information Altered mental status Likely accidental overdose on pregabalin Intibated for airway protection plan today to wean vent and extubate intermittent twiches noted, however follows commands Bradycardia negative serial EKGs and troponin Blood pressure stable, sinus bradycardia no QTC prolonged Full code N.p.o. DVT prophylaxis Attestations Medical Necessity Statement*: wean vent, plan to extubate Coding Level of Care Code Acute Archivist Nonprofit Foundation for [facility] Fwd Diagnoses Drug overdose T50.901A Respiratory failure J96.90 Altered mental status R41.82
--- NOTE | 2020-08-16 18:22 | PC.NURSE ---
PT EXTUBATED, STATES THAT HE TOOK X4 BOTTLES OF GABAPENTIN THAT HE HAS HAD HOARDING AT HIS HOUSE. UNABLE TO CONTRACT FOR SAFETY WHILE ON UNIT. DR ABRAHAM NOTIFIED OF SUICIDE ATTEMPT. ALL EXTRA ITEMS REMOVED FROM PT ROOM,
--- NOTE | 2020-08-17 00:48 | PC.NURSE ---
Addendum entered by Amara Faria RN 08/17/20 05:12: Witnessed 90 mL of fentanyl and 75 mL versed wasted by Jannie Montenegro RN. Original Note: Wasted 90 mL of Fentanyl and 75 mL of Versed. Witnessed by Amara Faria RN.
[2020-08-17] MEDS: D5-NS 0.45% + KCL 20 mEq 20 MEQ/1,000 ML BAG 75 MEQ IV (05:03)
--- NOTE | 2020-08-17 09:22 | PC.PHAR ---
pt states he takes gabapentin but unsure of strength and dose [facility]. [facility], will update med list.
--- NOTE | 2020-08-17 11:58 | P.PN_ITS ---
Subjective Subjective: Interval history: Extubated last evening to room air, doing well currenelt. Alert awake and oriented. After being extubaed revaled that he took 3-4 bottles of gabapentin (unknown dose) in a suicidal attempt. 96 hr hold placed yesetrday,no seizures noted, intermittent LE myoclonus much improved compared to yesterday.Poison control notified. Medications: Reviewed: Yes Vitals/I&O/Wt Last Vital Signs Temp 97.6 F 08/15/20 17:16 Pulse 60 08/16/20 05:59 Resp 18 08/16/20 16:00 BP 104/59 08/15/20 21:47 Pulse Ox 100 08/15/20 21:47 08/16/20 08/17/20 08/17/20 22:59 06:59 14:59 Intake Total 88.05 / 1121.833 753.75 / 1875.583 420 / 420 Output Total 1050 / 1050 550 / 1600 Balance -961.95 / 71.833 203.75 / 275.583 420 / 420 Weight last 48 hrs Weight 90.718 kg Physical Exam Narrative: EXAM NARRATIVE: GEN: Awake, alert and oriented, no acute distress CVS: S1S2 N RS: CTA B/L Abd: Soft, nt/nd , bs+ MANAGER VISUAL: no focal neuro deficits Urinary Catheter Management^: Shipman: Cath Placed During This Visit: yes Urinary Catheter Date of Insertion: 08/15/20 Urinary Catheter Time of Insertion: 18:55 Data : 08/16/20 06:13 08/16/20 06:13 Micro: Microbiology 08/15/20 17:45 Gram Stain - Final Sputum - Endotracheal Tube Aspirate Sputum Culture - Preliminary A&P Assessment and plan (1) Drug overdose: Status: Acute (2) Respiratory failure: Status: Acute (3) Altered mental status: Status: Acute (4) Suicidal ideation: Status: Acute Additional A&P Information AMS, now resolved, secondary to gabapentin overdose. Initially intubated for airway protection , now successfully extubated 08/16 without issues, on RA currently. No witnessed seizure episode. Poison control contacted, states few case reports of gabapentin withdrawal exist which may present as delirium tremens. intermittent twitches noted, much improved compared to yesterday. reports this was a suicide attempt, on 96 hr hold since overnight Psych consult [facility] Attestations Medical Necessity Statement*: stable for transfer to NPU Coding Level of Care Code Acute Automobile Assembler for Surjit Fwd Diagnoses Drug overdose T50.901A Respiratory failure J96.90 Altered mental status R41.82 Suicidal ideation R45.851
[2020-08-17 13:26] VITALS: BP 122/78; PULSE 87; RESP 18; TEMP 37.4; O2SAT 91
[2020-08-17 20:12] VITALS: BP 128/82; PULSE 88; RESP 16; TEMP 38.2; O2SAT 95
[2020-08-17] MEDS: trazodone 50 mg Tablet 25 MG PO (20:56)
[2020-08-17 22:25] VITALS: PULSE 89; RESP 18; O2SAT 95
[2020-08-18 06:00] VITALS: BP 115/68; PULSE 66; RESP 17; TEMP 38; O2SAT 94
[2020-08-18 13:45] VITALS: BP 129/74; PULSE 64; RESP 18; TEMP 36.9; O2SAT 96
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
[2020-08-18 21:01] VITALS: BP 154/84; PULSE 70; RESP 18; TEMP 37.1; O2SAT 98
[2020-08-18] MEDS: trazodone 50 mg Tablet 25 MG PO (21:34)
[2020-08-19 06:00] VITALS: BP 117/70; PULSE 74; RESP 18; TEMP 36.8; O2SAT 97
[2020-08-19 14:00] VITALS: BP 136/84; PULSE 86; RESP 20; TEMP 37.1; O2SAT 96
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
[2020-08-19 20:30] VITALS: BP 134/77; PULSE 65; RESP 15; TEMP 37.8; O2SAT 98
[2020-08-19] MEDS: hyDROXYzine 25 mg Capsule 50 MG PO (20:44)
[2020-08-19] MEDS: cetylpyridinium Lozenge 1 EACH MUCOUS MEM (20:44)
[2020-08-19] MEDS: trazodone 50 mg Tablet 25 MG PO (20:44)
[2020-08-20 06:00] VITALS: BP 118/75; PULSE 64; RESP 18; TEMP 37.1; O2SAT 97
[2020-08-20] MEDS: cetylpyridinium Lozenge 1 EACH MUCOUS MEM (06:37)
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
[2020-08-20] MEDS: fluoxetine 20 mg Capsule PO (10:31)
[2020-08-20 14:00] VITALS: BP 132/73; PULSE 80; RESP 18; TEMP 37
--- NOTE | 2020-08-20 20:32 | PC.NURSE ---
SITTING ON EDGE OF BED IN HIS ROOM, PLEASANT, DENIES WANTING TO HARM SELF OR OTHERS,
[2020-08-20] MEDS: trazodone 50 mg Tablet 25 MG PO (21:18)
[2020-08-20 21:35] VITALS: BP 115/75; PULSE 71; RESP 19; TEMP 37.1; O2SAT 97
[2020-08-21 06:00] VITALS: BP 137/77; PULSE 62; RESP 19; TEMP 37.3; O2SAT 95
[2020-08-21] MEDS: fluoxetine 20 mg Capsule PO (08:45)
--- NOTE | 2020-08-21 13:36 | PC.NURSE ---
VO RECEIVED BT DR ZHAO FOR DIPROVAN GTT FOR INTUBATION TO BE BROUGHT TO PT'S ROOM. DIPROVAN GTT STARTED BY CHARGE NURSE VIA PUMP, PT INTUBATED PER DR ZHAO.
[2020-08-21 13:59] VITALS: BP 112/74; PULSE 68; RESP 18; TEMP 36.9; O2SAT 96
[2020-08-21 16:46] VITALS: PULSE 78; RESP 18; O2SAT 98
[2020-08-21] MEDS: trazodone 50 mg Tablet 25 MG PO (19:23)
[2020-08-21 19:34] VITALS: BP 120/69; PULSE 91; TEMP 36.9; O2SAT 97
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
[2020-08-22 05:49] VITALS: BP 125/63; PULSE 68; RESP 18; TEMP 36.6; O2SAT 97
[2020-08-22] MEDS: fluoxetine 20 mg Capsule PO (08:55)
--- NOTE | 2020-08-22 10:26 | PC.SOCIAL ---
Important Medicare Message Provided updated signed Important Medicare Message to patient and copy in chart.
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
[2020-08-22 12:40] VITALS: BP 125/63; PULSE 68; RESP 18; TEMP 36.6; O2SAT 97
== END 2020-08-22 13:43 | disposition home or self-care (01) | DRG 917 ==
LOC: ER 19:19 → ICU 19:44 → NP 08-17 12:47
PROVIDERS: Family Medicine; Student in an Organized Health Care Education/Training Program; Admitting Provider Internal Medicine; Emergency Provider Emergency Medicine; Visit Provider Psychiatry & Neurology Psychiatry
DX: T42.6X2A Poisoning by other antiepileptic and sedative-hypnotic drugs, intentional self-harm, initial encounter (principal); J96.00 Acute respiratory failure, unspecified whether with hypoxia or hypercapnia; R41.82 Altered mental status, unspecified; N40.0 Benign prostatic hyperplasia without lower urinary tract symptoms; K73.9 Chronic hepatitis, unspecified; R97.20 Elevated prostate specific antigen [PSA]; Z87.891 Personal history of nicotine dependence; F10.21 Alcohol dependence, in remission; R00.1 Bradycardia, unspecified; Z81.8 Family history of other mental and behavioral disorders; M19.90 Unspecified osteoarthritis, unspecified site; F32.9 Major depressive disorder, single episode, unspecified; F12.10 Cannabis abuse, uncomplicated
CPT/HCPCS: 12345; 31500; 36415; 36600; 51702; 70450; 71045; 80048; 80051; 80053; 80178; 80185; 80306; 80307; 81001; 82009; 82330; 82550; 82803; 82805; 83605; 83690; 83735; 84100; 84443; 84484; 85025; 85378; 87070; 87205; 93005; 94002; 94003; 94799; 96372; 99284; A4570; J0330; J1650; J2250; J2704; J3010; J3490; J7030

== ENCOUNTER → 2020-09-18 10:25 | Outpatient (BNVA) | payer OTHER, SELFPAY | PROVIDERS: PCP Family Medicine; Visit Provider Urology | DX: R97.20 Elevated prostate specific antigen [PSA] (principal) | CPT/HCPCS: 81003; 84153 ==

== ENCOUNTER → 2021-11-26 15:02 | Outpatient (BNVA) | payer OTHER, SELFPAY | PROVIDERS: PCP Family Medicine; Visit Provider Urology | DX: R97.20 Elevated prostate specific antigen [PSA] (principal) | CPT/HCPCS: 81003; 84153 ==

== ENCOUNTER 2022-01-21 14:30 | Outpatient (CLI) | payer OTHER, SELFPAY | END 2022-01-21 14:31 | disposition home or self-care (01) | PROVIDERS: PCP Family Medicine; Visit Provider Urology | DX: R97.20 Elevated prostate specific antigen [PSA] (principal); R30.0 Dysuria; R39.15 Urgency of urination | CPT/HCPCS: 36415; 51741; 51798; 81003; 84153; 99213 ==

== ENCOUNTER 2023-01-21 14:21 | Outpatient (CLI) | payer OTHER, SELFPAY ==
--- NOTE | 2023-01-21 14:27 | US_ITS ---
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 Echogenicity: Coarse Surface nodularity: None. Mass (size and location): None. Bile ducts Intrahepatic ducts: Normal. Common bile duct diameter: 0.6 cm. Gallbladder Normal. Gallstones: None. Gallbladder sludge: None. Gallbladder wall thickening: None. Pericholecystic fluid: None. Sonographic Ziegler sign: Absent. Pancreas Normal as visualized. Right kidney: Normal. Hydronephrosis: None. Size: 11.4 cm x 5.6 cm x 4.7 cm. Abdominal aorta and IVC Visualized portions are normal. Ascites: None. US/US abdomen limited 50069 IMPRESSION: 1. Liver size is upper limits of normal. Slightly coarse hepatic echotexture a ppears progressed since 2017. Correlation with liver function tests. Liver is o therwise normal. 2. Normal gallbladder. Normal common bile duct. 3. No hydronephrosis in RIGHT kidney.
== END 2023-01-21 14:22 | disposition home or self-care (01) ==
LOC: RAD 14:21
PROVIDERS: PCP Family Medicine; Visit Provider Family Medicine
DX: B18.2 Chronic viral hepatitis C (principal)
CPT/HCPCS: 76705

== ENCOUNTER 2023-06-11 14:16 | Outpatient (CLI) | payer OTHER, SELFPAY ==
--- NOTE | 2023-06-11 14:23 | US_ITS ---
WS: [id number] RENAL ULTRASOUND HISTORY: URINARY URGENCY/L FLANK DISCOMFORT COMPARISON: None available. TECHNIQUE: 2-D and color Doppler imaging of the kidney submitted. Right kidney: 10.8 cm x 5.6 cm x 4.8 cm. Cortex: 1.6 cm Normal echogenicity with no hydronephrosis or mass. Left kidney: 11.0 cm x 5.1 cm x 5.0 cm. Cortex: 1.5 cm Normal echogenicity with no hydronephrosis or mass. Aorta: Normal. Urinary Bladder: Nondistended. IMPRESSION: Normal renal ultrasound.
== END 2023-06-11 14:17 | disposition home or self-care (01) ==
PROVIDERS: PCP Family Medicine; Visit Provider Nurse Practitioner Family
DX: R39.15 Urgency of urination (principal); R10.9 Unspecified abdominal pain
CPT/HCPCS: 76770

== ENCOUNTER 2023-07-31 14:09 | Outpatient (CLI) | payer OTHER, SELFPAY ==
[2023-07-31 14:54] LABS: Blood Urea Nitrogen 7 mg/dL (8-23); Calcium 9.1 mg/dL (8.5-10.5); Carbon Dioxide 26 mmol/L (22-29); Chloride 104 mmol/L (98-107); Glucose 93 mg/dL (65-115); Osmolality Calculated 286 mOsm/kg (285-295); Sodium 139 mmol/L (136-145)
== END 2023-07-31 14:10 | disposition home or self-care (01) ==
LOC: LAB 14:12
PROVIDERS: PCP Family Medicine; Visit Provider Nurse Practitioner Family
DX: Z87.898 Personal history of other specified conditions (principal); R97.20 Elevated prostate specific antigen [PSA]
CPT/HCPCS: 36415; 80048; 84153

== ENCOUNTER 2023-08-21 14:16 | Outpatient (CLI) | payer OTHER, SELFPAY | END 2023-08-21 14:17 | disposition home or self-care (01) | LOC: LAB 14:19 | PROVIDERS: PCP Family Medicine; Visit Provider Nurse Practitioner Family | DX: R97.20 Elevated prostate specific antigen [PSA] (principal) | CPT/HCPCS: 36415; 84153 ==

== ENCOUNTER 2024-11-11 13:27 | Outpatient (CLI) | payer OTHER, SELFPAY | END 2024-11-11 13:28 | disposition home or self-care (01) | LOC: LAB 13:30 | PROVIDERS: PCP Family Medicine; Visit Provider Urology | DX: C61 Malignant neoplasm of prostate (principal) | CPT/HCPCS: 84153 ==